=== PATIENT | male | born 1950 | race Caucasian/White ===

== ENCOUNTER 2019-05-10 11:55 | Emergency (ER) | payer MEDICARE ==
[~2019-05-10] VITALS: Ht 172.7 cm; Wt 88.6 kg
[~2019-05-10 11:55] MED LIST: ACET65TA; ASPI325T; AVAP150T; CORE3.12; FLOM0.4C39; NITR0.4S; THERGRAN; VITA250T; VOLT75TA; ZETI10TA
[2019-05-10] MEDS ORDERED: REPA1INJ (12:13)
[2019-05-10] MEDS ORDERED: CARV3.12 (12:13)
[2019-05-10] MEDS ORDERED: SPIR-10 (12:13)
[2019-05-10] MEDS ORDERED: ENTR1TAB (12:13)
[2019-05-10] MEDS ORDERED: MELO15TA28 (12:13)
[2019-05-10] MEDS ORDERED: TAMS1CAP17 (12:13)
[2019-05-10] MEDS ORDERED: dexameTHASONE 20 MG/5 ML VIAL (J1100) IV ONE (13:00)
[2019-05-10] MEDS ORDERED: EPIP0.3I2 IM (13:02)
[2019-05-10] MEDS ORDERED: PRED20TA PO (13:02)
[2019-05-10 14:30] VITALS: BP 124/73
== END 2019-05-10 14:37 | disposition home or self-care (01) ==
LOC: EDBD 11:55 → M ED 11:55
DX: T63.461A Toxic effect of venom of wasps, accidental (unintentional), initial encounter (principal); X58.XXXA Exposure to other specified factors, initial encounter; Y92.89 Other specified places as the place of occurrence of the external cause; I11.9 Hypertensive heart disease without heart failure; I25.10 Atherosclerotic heart disease of native coronary artery without angina pectoris; Z88.8 Allergy status to other drugs, medicaments and biological substances; Z91.048 Other nonmedicinal substance allergy status; Z79.899 Other long term (current) drug therapy; Z79.82 Long term (current) use of aspirin
CPT/HCPCS: 93041; 96374; 99284; J1100